=== PATIENT | female | born 1985 | race African-American/Black ===

== ENCOUNTER 2016-09-06 06:09 | Emergency (ER) | payer OTHER ==
[~2016-09-06] VITALS: Ht 160 cm; Wt 158.8 kg
[~2016-09-06 06:09] MED LIST: AUGMENTIN 875875 MG PO; CEPACOL SORE T1 EAC7 MM
[2016-09-06] MEDS ORDERED: NOHOMEMEDICATIONS (06:15)
[2016-09-06] MEDS ORDERED: [UNRECOGNIZED DRUG - REMARK] (06:19)
[2016-09-06] MEDS ORDERED: NAPROSYN500 MG PO (07:33)
[2016-09-06] MEDS ORDERED: SENOKOT-S1 TA1 PO (07:33)
[2016-09-06] MEDS ORDERED: HYDROCODONE-APA1 TA1 PO (07:33)
== END 2016-09-06 08:50 | disposition home or self-care (01) ==
LOC: ER 06:09
DX: M72.2 Plantar fascial fibromatosis (principal); Z88.8 Allergy status to other drugs, medicaments and biological substances; F10.99 Alcohol use, unspecified with unspecified alcohol-induced disorder

== ENCOUNTER 2016-10-09 16:33 | Emergency (ER) | payer OTHER ==
[~2016-10-09] VITALS: Ht 160 cm; Wt 145.2 kg
[~2016-10-09 16:33] MED LIST changes: +HYDROCODONE-APA1 TA1 PO; +NAPROSYN500 MG PO; +NOHOMEMEDICATIONS; +SENOKOT-S1 TA1 PO; +[UNRECOGNIZED DRUG - REMARK]
[2016-10-09] MEDS ORDERED: ROBAXIN500 MG PO (17:17)
[2016-10-09] MEDS ORDERED: NAPROSYN500 MG PO (17:17)
[2016-10-09] MEDS ORDERED: PERCOCET 5-3251 EACH PO (17:17)
== END 2016-10-09 18:15 | disposition home or self-care (01) ==
LOC: ER 16:33
DX: M54.5 Low back pain (principal); Z98.890 Other specified postprocedural states; Z91.041 Radiographic dye allergy status

== ENCOUNTER 2016-10-15 18:21 | Emergency (ER) | payer OTHER ==
[~2016-10-15] VITALS: Ht 160 cm; Wt 145.2 kg
[~2016-10-15 18:21] MED LIST changes: +PERCOCET 5-3251 EACH PO; +ROBAXIN500 MG PO
[2016-10-15] MEDS ORDERED: FLEXERIL PO (19:00)
[2016-10-15] MEDS ORDERED: TRAMADOL 50 MG50 MG PO (19:00)
== END 2016-10-15 20:07 | disposition home or self-care (01) ==
LOC: ER 18:21
DX: S29.012A Strain of muscle and tendon of back wall of thorax, initial encounter (principal); M62.830 Muscle spasm of back; F10.99 Alcohol use, unspecified with unspecified alcohol-induced disorder; Z91.041 Radiographic dye allergy status; X58.XXXA Exposure to other specified factors, initial encounter; Y93.89 Activity, other specified; Y92.89 Other specified places as the place of occurrence of the external cause; Y99.8 Other external cause status

== ENCOUNTER 2017-11-14 19:31 | Emergency (ER) | payer OTHER ==
[~2017-11-14] VITALS: Ht 160 cm; Wt 147.4 kg
[~2017-11-14 19:31] MED LIST changes: +FLEXERIL PO; +TRAMADOL 50 MG50 MG PO
[2017-11-14 22:17] LABS: HEMATOCRIT 34.4 % (37.0-47.0); HEMOGLOBIN 11.9 gm/dL (12.0-15.0); MCH 35.5 pg (26.0-34.0); MCHC 34.6 g/dL (28.0-37.0); MCV 102.8 fL (80.0-100.0); PLATELET COUNT 167 thou/uL (150-400); RBC 3.35 mil/uL (4.20-5.00); RDW 17.7 % (10.5-14.5); WBC 6.1 thou/uL (4.0-11.0)
[2017-11-14 22:29] LABS: CALCIUM 9.6 mg/dL (8.5-10.1); CREATININE 0.9 mg/dL (0.6-1.0); POTASSIUM 3.1 mmol/L (3.5-5.1)
[2017-11-14 22:32] LABS: URIC ACID* 11.1 mg/dL (2.6-7.2)
[2017-11-14] MEDS ORDERED: NORCO 5-325 TA1 EACH PO (22:59)
[2017-11-14] MEDS ORDERED: INDOMETHACIN 2525 MG PO (22:59)
[2017-11-14 23:02] LABS: ABSOLUTE NEUTROPHILS 4.1 thou/uL (1.4-8.2)
[2017-11-14 23:03] LABS: ANISOCYTOSIS 1+; LARGE PLATELETS OCCASIONAL; MACROCYTES 1+; POLYCHROMASIA 1+
== END 2017-11-15 01:00 | disposition home or self-care (01) ==
LOC: ER 19:31
PROVIDERS: Nurse Practitioner Family
DX: M10.072 Idiopathic gout, left ankle and foot (principal); Z91.041 Radiographic dye allergy status

== ENCOUNTER 2017-11-28 19:16 | Emergency (ER) | payer OTHER ==
[~2017-11-28] VITALS: Ht 160 cm; Wt 139.3 kg
[~2017-11-28 19:16] MED LIST changes: +INDOMETHACIN 2525 MG PO; +NORCO 5-325 TA1 EACH PO
[2017-11-28] MEDS ORDERED: ACETAMINOPHEN500 M1 PO (19:45)
[2017-11-28] MEDS ORDERED: VALIUM5 MG PO (20:29)
[2017-11-28] MEDS ORDERED: MOBIC15 MG PO (20:29)
[2017-11-28] MEDS ORDERED: NORCO 5-325 TA1 EACH PO (20:29)
== END 2017-11-28 21:25 | disposition home or self-care (01) ==
LOC: ER 19:16
DX: M54.6 Pain in thoracic spine (principal); M25.522 Pain in left elbow; Z91.041 Radiographic dye allergy status; Z98.890 Other specified postprocedural states